=== PATIENT | female | born 1995 | race Caucasian/White ===

== ENCOUNTER 2017-03-18 12:52 | Emergency (ER) | payer OTHER ==
[2017-03-18 12:56] VITALS: BP 122/69; PULSE 85; TEMP 98; BMI 42.9
[2017-03-18] MEDS ORDERED: ACETAMINOPHEN 500 MG TABLET (FP) PO ONE (13:34)
[2017-03-18] MEDS ORDERED: ACETAMINOPHEN 325 MG TABLET (FP) ONE (14:05)
--- NOTE | 2017-03-18 14:34 | PDOC ---
History of Present Illness - General Chief Complaint: Pain, Acute Stated Complaint: ABD PAIN (4 MONTHS ) Time Seen by Provider: 03/18/17 13:30 History Source: Patient Exam Limitations: No Limitations - History of Present Illness Travel History: No Initial Comments: 03/18/17 14:29 21-year-old female currently 15 weeks presents with suprapubic Pressure and mild dysuria since yesterday. Patient states is followed by Dr. Megan Sotelo and had normal ultrasound done 3 weeks ago. Patient denies vaginal discharge, vaginal bleeding, fever, chills, nausea, or back pain. Timing/Duration: reports: constant Quality: reports: mild, cramping Abdominal Pain Onset Location: reports: suprapubic Pain Radiation: reports: no radiation Activities at Onset: reports: none Aggravating Factors: improves with: None Alleviating Factors: improves with: None Past History - Past Medical History Allergies/Adverse Reactions: Allergies Allergy/AdvReac Type Severity Reaction Status Date / Time No Known Allergies Allergy Verified 03/18/17 14:51 Home Medications: Ambulatory Orders Vitamins (Sjr) - 1 tab PO DAILY 07/12/14 Asthma: Yes (seasonal) Cancer: Yes (non hodgkins lymphoma) Cardiac Disorders: No Diabetes: No GI Disorders: Yes (gallstones) HTN: No Suicide Attempt (Hx): No Seizures: No Thyroid Disease: No - Immunization History Immunization Up to Date: Yes - Psycho/Social/Smoking Cessation Hx Anxiety: (refused) Suicidal Ideation: No Smoking Status: No Smoking History: Never smoked Have you smoked in the past 12 months: No Number of Cigarettes Smoked Daily: 0 Cigars Per Day: 0 Hx Alcohol Use: No Drug/Substance Use Hx: No Substance Use Type: None Hx Substance Use Treatment: No Patient Lives Alone: No Lives with/in: spouse/SO Review of Systems - Review of Systems Able to Perform ROS?: Yes Constitutional: No: Symptoms Reported HEENTM: No: Symptoms Reported Respiratory: No: Symptoms reported Cardiac (ROS): No: Symptoms Reported ABD/GI: Yes: Abdominal cramping : Yes: Dysuria. No: Discharge Musculoskeletal: No: Symptoms Reported Integumentary: No: Symptoms Reported Neurological: No: Headache, Dizziness Hematologic/Lymphatic: No: Symptoms Reported *Physical Exam - Vital Signs Last Vital Signs Temp Pulse Resp BP Pulse Ox 98.0 F 85 18 122/69 98 05/11/17 12:53 03/18/17 12:53 03/18/17 12:53 03/18/17 12:53 03/18/17 12:53 - Physical Exam General Appearance: Yes: Nourished, Appropriately Dressed. No: Apparent Distress HEENT: positive: EOMI, AYAN. negative: Pale Conjunctivae Neck: positive: Supple Respiratory/Chest: positive: Lungs Clear, Normal Breath Sounds. negative: Respiratory Distress, Accessory Muscle Use Cardiovascular: positive: Regular Rhythm, Regular Rate. negative: Murmur Female Pelvic Exam: positive: normal external exam, normal adnexa. negative: cervical os closed, CMT, discharge, vaginal bleeding Gastrointestinal/Abdominal: positive: Soft, Tenderness (midsuprapubic) Musculoskeletal: negative: CVA Tenderness Extremity: positive: Normal Capillary Refill Integumentary: positive: Normal Color, Warm, Moist Neurologic: positive: Motor Strength 5/5 (ambulatory) ED Treatment Course - LABORATORY CBC & Chemistry Diagram: 03/18/17 14:28 03/18/17 14:28 - RADIOLOGY Radiology Studies Ordered: Category Date Time Status FOLLOW-UP US [US] Stat Ultrasound 03/18/17 13:34 Taken - Medications Given in the ED: ED Medications Discontinued Medications Generic Name Dose Route Start Last Admin Trade Name Freq PRN Reason Stop Dose Admin Acetaminophen 975 mg 03/18/17 13:34 03/18/17 14:08 Tylenol - PO 03/18/17 13:35 975 mg ONCE ONE Administration Medical Decision Making - Medical Decision Making 03/18/17 14:35 15 week female presents with suprapubic pressure accompanied with dysuria. Patient has no acute findings on exam except for point tenderness in mid suprapubic area. Patient ordered for labs, urine urine culture, and ultrasound. Patient also ordered for Tylenol for discomfort. 03/18/17 16:07 Ultrasound shows a single live intrauterine measuring 15 weeks 1 day with a heart rate of 1 60 bpm. Patient will be treated for urinary tract infection. *DC/Admit/Observation/Transfer Diagnosis at time of Disposition: Urinary tract infection Qualifiers: Urinary tract infection type: acute cystitis Hematuria presence: with hematuria Qualified Code(s): N30.01 - Acute cystitis with hematuria - Discharge Dispostion Disposition: HOME Condition at time of disposition: Good - Referrals Referrals: Landry Valdez MD [Staff Physician] - - Patient Instructions Printed Discharge Instructions: DI for Urinary Tract Infection (UTI) Additional Instructions: Please take antibiotics as prescribed until completed. Please follow-up with your JUDO TEACHER. Please return to ED if symptoms worsen.
[2017-03-18 14:45] LABS: URINE APPEARANCE CLOUDY; URINE BILIRUBIN NEGATIVE (NEGATIVE); URINE COLOR DKYELLOW; URINE GLUCOSE (UA) NEGATIVE (NEGATIVE); URINE KETONE NEGATIVE (NEGATIVE); URINE NITRITE NEGATIVE (NEGATIVE); URINE UROBILINOGEN NEGATIVE E.U./dl (0.2-1.0)
[2017-03-18 14:52] LABS: BASOPHIL 0.4 % (0-2.0); EOSINOPHIL 1.1 % (0-4.5); MCH 29.6 pg (25.7-33.7); MCHC 33.6 g/dl (32.0-36.0); MEAN CELL VOLUME 88.2 fl (80-96); MEAN PLT VOLUME 7.4 fl (7.5-11.1); NEUTROPHILS 68.2 % (42.8-82.8); PLATELET COUNT 259 K/MM3 (134-434); RDW 12.9 % (11.6-15.6)
[2017-03-18 14:56] LABS: URINE BLOOD 3+ (NEGATIVE); URINE LEUK ESTERASE 3+ (NEGATIVE); URINE PROTEIN 1+ (NEGATIVE)
[2017-03-18 15:00] LABS: ALBUMIN 2.9 g/dl (3.4-5.0); ANION GAP 12 (8-16); BILIRUBIN,TOTAL 0.3 mg/dL (0.2-1.0); CALCIUM 8.8 mg/dL (8.5-10.1); CO2 24 mmol/L (21-32); GLUCOSE,RANDOM 81 mg/dL (74-106); SGOT/AST 15 U/L (15-37); SGPT/ALT 32 U/L (12-78); TOT PROT 6.6 g/dl (6.4-8.2)
[2017-03-18 15:01] LABS: ALK PHOS 88 U/L (45-117)
[2017-03-18 15:50] LABS: URINE MUCUS MODERATE; URINE RBC 218 /hpf (0-3); URINE WBC 52 /hpf (3-5)
[2017-03-19 12:51] LABS: COCKROFT - GAULT 321.2915; CREATININE 0.5 mg/dL (0.55-1.02)
== END 2017-03-18 16:16 | disposition home or self-care (01) ==
LOC: JER 12:52
DX: O26.892 Other specified pregnancy related conditions, second trimester (principal); N30.01 Acute cystitis with hematuria; Z3A.15 15 weeks gestation of pregnancy; Z87.09 Personal history of other diseases of the respiratory system; Z85.72 Personal history of non-Hodgkin lymphomas
CPT/HCPCS: 36415; 76816-TC; 80053; 81003; 81015; 85025; 87077; 87086; 99282-25

== ENCOUNTER 2017-08-13 10:37 | Emergency (ER) | payer OTHER ==
[2017-08-13 10:42] VITALS: BMI 42.5
--- NOTE | 2017-08-13 11:23 | PDOC ---
History of Present Illness - General Chief Complaint: Cold Symptoms Stated Complaint: SOB (36 WKS ) Time Seen by Provider: 08/13/17 11:06 History Source: Patient Exam Limitations: No Limitations - History of Present Illness Initial Comments: 08/13/17 11:18 Patient is a 22-year-old female, currently 36 weeks presents with one week history of cough, nasal congestion, no fever. She was seen yesterday by Dr. Valdez her BELL CAPTAIN baby was evaluated and is doing well, was told by to take Robitussin. Reports history of asthma has been using her albuterol inhaler states she works night and last night was coughing increased amounts. Patient denies any other complaints, no fever, no nausea vomiting, no diarrhea, no chest pain or shortness of breath this reports increased cough nonproductive. Past Medical History: asthma. Allergies: No known allergies Medications: albuterol Family History: Non-contributory Social History: Denies smoking, alcohol use, or IVDU Review of Systems GENERAL/CONSTITUTIONAL: No fever or chills. No weakness. No weight change. HEAD, EYES, EARS, NOSE AND THROAT: No change in vision. No ear pain or discharge. No sore throat. CARDIOVASCULAR: No chest pain or shortness of breath. RESPIRATORY: No cough, wheezing, or hemoptysis. GASTROINTESTINAL: No nausea, vomiting, diarrhea or constipation. No rectal bleeding. GENITOURINARY: No dysuria, frequency, or change in urination. MUSCULOSKELETAL: No joint or muscle swelling or pain. No neck or back pain. SKIN AND BREASTS: No rash or easy bruising. NEUROLOGIC: No headache, vertigo, loss of consciousness, or loss of sensation. PSYCHIATRIC: No depression or anxiety. ENDOCRINE: No increased thirst. No abnormal weight change. HEMATOLOGIC/LYMPHATIC: No anemia, easy bleeding, or history of blood clots. ALLERGIC/IMMUNOLOGIC: No hives or skin allergy. No latex allergy. Physical Exam: GENERAL: The patient is awake, alert, and fully oriented, in no acute distress. HEAD: Normal with no signs of trauma. EYES: Pupils equal, round and reactive to light, extraocular movements intact, sclera anicteric, conjunctiva clear. ENT: Ears normal, nares patent, oropharynx clear without exudates. Moist mucous membranes. No uvula deviation NECK: Normal range of motion, supple without lymphadenopathy, JVD, or masses. LUNGS: Breath sounds equal, clear to auscultation bilaterally. No wheezes, and no crackles. Occasional bronchospasm. HEART: Regular rate and rhythm, normal S1 and S2 without murmur, rub or gallop. ABDOMEN: Gravid MUSCULOSKELETAL: Normal range of motion, no edema. No clubbing or cyanosis. No cords, erythema, or tenderness. No CVA Tenderness with fist. NEUROLOGICAL: Cranial nerves II through XII grossly intact. Normal speech, normal gait. SKIN: Warm, Dry, normal turgor, no rashes or lesions noted. Past History - Past Medical History Allergies/Adverse Reactions: Allergies Allergy/AdvReac Type Severity Reaction Status Date / Time No Known Allergies Allergy Verified 08/13/17 10:39 Home Medications: Ambulatory Orders NK [No Known Home Medication] 08/13/17 Asthma: Yes (seasonal) Cancer: Yes (non hodgkins lymphoma: 2014) Cardiac Disorders: No Diabetes: No GI Disorders: Yes (gallstones) HTN: No Seizures: No Thyroid Disease: No - Immunization History Immunization Up to Date: Yes - Suicide/Smoking/Psychosocial Hx Smoking Status: No Smoking History: Never smoked Have you smoked in the past 12 months: No Number of Cigarettes Smoked Daily: 0 Cigars Per Day: 0 Hx Alcohol Use: No Drug/Substance Use Hx: No Substance Use Type: None Hx Substance Use Treatment: No *Physical Exam - Vital Signs Last Vital Signs Temp Pulse Resp BP Pulse Ox 98.3 F 97 H 18 138/74 96 08/13/17 10:39 08/13/17 10:39 08/13/17 10:39 08/13/17 10:39 08/13/17 10:39 Medical Decision Making - Medical Decision Making 08/13/17 11:22 A/P: Patient here for cough and cold-like symptoms, increased cough with occasional bronchospasm. Since patient saw Dr. Valdez last evening, I have paged him to discuss case. 08/13/17 11:50 08/13/17 12:[address] Kee, states to give patient only one Combivent treatment, patient in no acute distress does not want patient to have antibiotics or prednisone for, cold-like symptoms. Patient can continue Robitussin as needed for cough, follow-up with Dr. Valdez office. Presents, increased cough, productive cough, increased bronchospasm, or any other concerns, return immediately to ER 08/13/17 12:48 Patient with common cold-like symptoms, will DC patient home, supportive care, follow up in OB, L&D today for evaluation of baby prior to discharge. Patient to follow-up with Dr. Valdez if any fever, increased cough, or any other concerns . Medication as per Dr. Valdez, patient is in no acute distress bronchospasm is resolved, occasional nonproductive cough. 08/13/17 12:50 *DC/Admit/Observation/Transfer Diagnosis at time of Disposition: Cough - Discharge Dispostion Condition at time of disposition: Stable Admit: No - Referrals Referrals: Zaki Farfan MD [Primary Care Provider] - Landry Valdez MD [Staff Physician] - - Patient Instructions Printed Discharge Instructions: DI for Common Cold Additional Instructions: Keep head of bed elevated 45 when sleeping Albuterol as needed for wheezing or severe spasm Cool air humidifier Medications as per Dr. Valdez Followup in the primary care doctor's office in 2 days for evaluation. If any respiratory distress, increased cough, inability to drink, increased wheezing please return immediately to emergency department.
[2017-08-13] MEDS ORDERED: ALBUTEROL SO4 2.5/IPRATROPIUM 0.5 INH SOL 3 ML VIAL.NEB. NEB ONE (12:14)
[2017-08-13 13:14] VITALS: BP 115/50; PULSE 100; TEMP 97.6
== END 2017-08-13 13:43 | disposition home or self-care (01) ==
LOC: SUPCPDRO 10:37 → JERFT 10:37 → JER 10:37
PROC: 3E0F7GC Introduction of Other Therapeutic Substance into Respiratory Tract, Via Natural or Artificial Opening (ICD-10-PCS; principal; 2017-08-13)
DX: O26.893 Other specified pregnancy related conditions, third trimester (principal); Z3A.36 36 weeks gestation of pregnancy; R05 Cough
CPT/HCPCS: 99281-25

== ENCOUNTER 2017-09-02 20:00 | Inpatient (IN) | payer OTHER ==
[2017-09-02] MEDS ORDERED: AZITHROMYCIN IVPB 500 MG in DEXTROSE 5%-WATER - 250 ML IVPB ONE (23:19)
[2017-09-02] MEDS ORDERED: PROMETHAZINE HCL 25 MG/1 ML VIAL IVPUSH ONE (23:21)
[2017-09-02] MEDS ORDERED: BUTORPHANOL TARTRATE 1 MG/ML VIAL IVPUSH ONE (23:21)
[2017-09-02 23:24] VITALS: BMI 42.9
--- NOTE | 2017-09-02 23:27 | HP ---
Past Medical History - Primary Care Physician PCP:: Landry Valdez - Admission Chief Complaint: 39 weeks, labor History of Present Illness: 22 yo f edc 08/08/2017 39.3 weeks, c/o contraction, , no rom, has bloody showand mucus discharge, cx 3 cm 80 vx -2 mi, fhr cat 1, irregular contraction , History Source: Patient Limitations to Obtaining History: No Limitations - Past Medical History Pulmonary: Yes: Asthma Hepatobiliary: Yes: Choledocholithiasis ...: 4 ...Para: 1 ...Term: 1 ...: 0 ...Spon : 1 ...Induced : 1 ...LMP: 12/08/16 ... Weeks Gestation by Dates: 38.1 ...EDC by Dates: 09/14/17 ...EDC by Sono: 09/09/17 Heme/Onc: Yes: Other (non - hodgkin lymphoma) Infectious Disease: Yes: STD's (hx of chlamydia ,txed with 1 gm zithromax) - Past Surgical History Past Surgical History: Yes: Cholecystectomy Hx Myomectomy: No Hx Transabdominal Cerclage: No - Smoking History Smoking history: Never smoked Have you smoked in the past 12 months: No Aproximately how many cigarettes per day: 0 - Alcohol/Substance Use Hx Alcohol Use: No History of Substance Use: reports: None - Social History Usual Living Arrangement: Yes: With Spouse History of Recent Travel: No Home Medications - Allergies Allergies/Adverse Reactions: Allergies Allergy/AdvReac Type Severity Reaction Status Date / Time No Known Allergies Allergy Verified 09/02/17 21:44 - Home Medications Home Medications: Ambulatory Orders Albuterol Sulfate Inhaler - [Ventolin HFA Inhaler -] 1 - 2 puff PO PRN PRN 08/25 Vit/Iron Fumarate/FA [ Tablet] 1 tablet PO DAILY 08/25/17 Review of Systems - Review of Systems Constitutional: reports: No Symptoms Eyes: reports: No Symptoms HENT: reports: No Symptoms Neck: reports: No Symptoms Cardiovascular: reports: No Symptoms Gastrointestinal: reports: No Symptoms Genitourinary: reports: No Symptoms Musculoskeletal: reports: No Symptoms Integumentary: reports: No Symptoms Neurological: reports: No Symptoms Endocrine: reports: No Symptoms Hematology/Lymphatic: reports: No Symptoms Psychiatric: reports: No Symptoms Physical Exam - Maternity Vital Signs: Vital Signs Temperature 98.2 F 09/02/17 21:49 Pulse Rate 107 H 09/02/17 21:49 Respiratory Rate 16 09/02/17 21:49 Blood Pressure 118/67 09/02/17 21:49 O2 Sat by Pulse Oximetry (%) Constitutional: Yes: Well Nourished, No Distress, Calm Eyes: Yes: WNL, Conjunctiva Clear, EOM Intact HENT: Yes: WNL, Atraumatic, Normocephalic Neck: Yes: WNL, Supple, Trachea Midline Cardiovascular: Yes: WNL, Regular Rate and Rhythm Breast(s): Yes: WNL - Abdominal Exam/OB Fundal Height: 40 Number of Fetuses: Single Presentation: Vertex Contractions: Yes Regularity: Irregular Intensity: Mod/Strong Monitor Mode: External Heart Rate [facility] Category: I Accelerations: Uniform - Vaginal Exam/OB Vaginal Bleediing: No, Bloody Show Dilatation (cm): 3 cm Effacement (%): 75 Amniotic Membrane Status: Bulging Presentation: Vertex/Position Station: -2 - Physical Exam Musculoskeletal: Yes: WNL Extremities: Yes: WNL Edema: LUE: Trace, RUE: Trace, LLE: 1+, RLE: 1+ Deep Tendon Reflex Grade: Normal +2 Hemorrhage Risk Assessment - Risk Factors Medium Risk Factors: Yes: None High Risk Factors: Yes: None Risk Score: 1 Risk Level: Medium Risk Problem List - Problems (1) with 39 completed weeks gestation Code(s): Z3A.39 - 39 WEEKS GESTATION OF (2) Labor established Code(s): [id number] - (3) Obesity Code(s): E66.9 - OBESITY, UNSPECIFIED Qualifiers: Obesity type: due to excess calories Assessment/Plan admit , heart monitoring, ,pitocin rba discussed . agreed
[2017-09-02] MEDS ORDERED: OXYTOCIN 15 UNITS/ LR 250 ML 250 ML IVPB SCH (23:30)
[2017-09-02] MEDS ORDERED: DEXTROSE 5%-LACTATED RINGERS 1,000 ML IV SCH (23:30)
[2017-09-03] LABS: BASOPHIL 1.7 % (0-2.0); EOSINOPHIL 0.5 % (0-4.5); MCHC 34.2 g/dl (32.0-36.0); MEAN CELL VOLUME 87.7 fl (80-96); MEAN PLT VOLUME 8.2 fl (7.5-11.1); NEUTROPHILS 73.2 % (42.8-82.8); PLATELET COUNT 227 K/MM3 (134-434); RDW 13.7 % (11.6-15.6); WHITE BLOOD COUNT 8.5 K/mm3 (4.0-10.0)
[2017-09-03 00:09] LABS: INR 0.92 (0.82-1.09); PROTHROMBIN TIME (PATIENT) 10.4 SEC (9.98-11.88)
[2017-09-03 00:12] LABS: ACTIVATED PTT 26.1 SECONDS (26.9-34.4)
[2017-09-03] MEDS ORDERED: ELECTROLYTE-148 SOLN 1,000 ML IV ONE (00:13)
[2017-09-03 00:16] LABS: ANION GAP 11 (8-16); CALCIUM 7.9 mg/dL (8.5-10.1); CO2 22 mmol/L (21-32); CREATININE 0.3 mg/dL (0.55-1.02); GLUCOSE,RANDOM 83 mg/dL (74-106)
[2017-09-03] MEDS: AZITHROMYCIN IVPB 250 ML IVPB SCH ×2 (00:20→01:20)
[2017-09-03] MEDS ORDERED: ELECTROLYTE-148 SOLN 1,000 ML IV SCH (00:46)
[2017-09-03] MEDS ORDERED: FENTANYL/BUPIVACAINE/NS/PF - PCEA - 50 ML DISP.SYRIN EP SCH (08:00)
--- NOTE | 2017-09-03 08:16 | PN ---
Progress Note (short form) - Note Progress Note: 745 am cx 4 cm, 80 vx -2 , mi, arom, clear , fh cat 1 tracing, contraction q 2min, wants epidural Problem List - Problems (1) with 39 completed weeks gestation Code(s): Z3A.39 - 39 WEEKS GESTATION OF (2) Labor established Code(s): XFY5000 - (3) Obesity Code(s): E66.9 - OBESITY, UNSPECIFIED Qualifiers: Obesity type: due to excess calories
[2017-09-03] MEDS ORDERED: WITCH HAZEL 50% (TUCKS) 40 PAD/JAR PAD TP PRN (10:33)
[2017-09-03] MEDS ORDERED: METHYLERGONOVINE MALEATE 0.2 MG/1 ML AMP IM PRN (10:33)
[2017-09-03] MEDS ORDERED: BENZOCAINE 20% 57 GM BOTTLE TP PRN (10:33)
[2017-09-03] MEDS ORDERED: BENZOCAINE 28 GM HEMORRHOIDAL OINTMENT TP PRN (10:33)
[2017-09-03] MEDS ORDERED: BISACODYL 10 MG SUPP.RECT RC PRN (10:33)
[2017-09-03] MEDS ORDERED: D5W-LR W/ 20 UNITS OXYTOCIN 1,000 ML IV SCH (10:45)
[2017-09-03] MEDS ORDERED: OXYTOCIN 20 UNITS in 0.9% NS 1,000 ML IV SCH (12:15)
[2017-09-03] MEDS: IBUPROFEN 600 MG TABLET (FP) PO PRN ×2 (15:55→21:06)
[2017-09-03] MEDS: ACETAMINOPHEN 325 MG TABLET (FP) PO PRN ×2 (15:55→21:05)
[2017-09-03] MEDS: FERROUS SO4 325 MG TABLET (FP) PO SCH (21:05)
[2017-09-04] MEDS: ACETAMINOPHEN 325 MG TABLET (FP) PO PRN ×3 (00:59→21:54)
[2017-09-04] MEDS: IBUPROFEN 600 MG TABLET (FP) PO PRN ×3 (01:00→21:53)
--- NOTE | 2017-09-04 06:29 | PN ---
Post Progress Note Post Day: 1 Type of Delivery: Vital Signs: Vital Signs Temperature 98.3 F 09/04/17 06:00 Pulse Rate 88 09/04/17 06:00 Respiratory Rate 20 09/04/17 06:00 Blood Pressure 116/76 09/04/17 06:00 O2 Sat by Pulse Oximetry (%) 100 09/03/17 10:10 Breast Exam: Yes: Soft Uterus: Yes: Fundus Firm Abdomen/GI: Yes: Abdomen soft Lochia: Yes: Rubra Lochia, amount: Small Extremities: Yes: Calves non-tender Perineum: Yes: Intact Activity: Ambulating - Labs Labs: CBC WBC 8.5 K/mm3 (4.0-10.0) 09/02/17 23:30 RBC 3.86 M/mm3 (3.60-5.2) 09/02/17 23:30 Hgb 11.6 GM/dL (10.7-15.3) D 09/02/17 23:30 Hct 33.9 % (32.4-45.2) 09/02/17 23:30 MCV 87.7 fl (80-96) 09/02/17 23:30 MCH 30.0 pg (25.7-33.7) 09/02/17 23:30 MCHC 34.2 g/dl (32.0-36.0) 09/02/17 23:30 RDW 13.7 % (11.6-15.6) 09/02/17 23:30 Plt Count 227 K/MM3 (134-434) 09/02/17 23:30 MPV 8.2 fl (7.5-11.1) D 09/02/17 23:30 Neutrophils % 73.2 % (42.8-82.8) 09/02/17 23:30 Lymphocytes % 19.7 % (8-40) D 09/02/17 23:30 Monocytes % 4.9 % (3.8-10.2) 09/02/17 23:30 Eosinophils % 0.5 % (0-4.5) 09/02/17 23:30 Basophils % 1.7 % (0-2.0) D 09/02/17 23:30 Assessment/Plan oob reg diet
[2017-09-04 07:47] LABS: BASOPHIL 0.6 % (0-2.0); EOSINOPHIL 1.5 % (0-4.5); MCH 30.7 pg (25.7-33.7); MCHC 34.7 g/dl (32.0-36.0); MEAN CELL VOLUME 88.6 fl (80-96); PLATELET COUNT 208 K/MM3 (134-434); RDW 13.4 % (11.6-15.6); WHITE BLOOD COUNT 8.5 K/mm3 (4.0-10.0)
[2017-09-04] MEDS: FERROUS SO4 325 MG TABLET (FP) PO SCH ×2 (09:37→21:52)
[2017-09-04] MEDS: PRENATAL VITAMINS W/ FOLIC ACID TABLET (FP) PO SCH (09:37)
[2017-09-04 21:40] VITALS: PULSE 82
[2017-09-04] MEDS ORDERED: SENNOSIDES/DOCUSATE COMBO (SENNA PLUS) TABLET (UD) PO PRN (22:00)
[2017-09-05 09:10] VITALS: BP 139/87; TEMP 99.1
[2017-09-05] MEDS: FERROUS SO4 325 MG TABLET (FP) PO SCH (09:37)
[2017-09-05] MEDS: PRENATAL VITAMINS W/ FOLIC ACID TABLET (FP) PO SCH (09:37)
[2017-09-05] MEDS: IBUPROFEN 600 MG TABLET (FP) PO PRN (12:08)
--- NOTE | 2017-09-05 12:08 | PN ---
Post Progress Note Type of Delivery: Vital Signs: Vital Signs Temperature 99.1 F 09/05/17 09:05 Pulse Rate 82 09/05/17 09:05 Respiratory Rate 20 09/05/17 09:05 Blood Pressure 139/87 09/05/17 09:05 O2 Sat by Pulse Oximetry (%) 100 09/03/17 10:10 Breast Exam: Yes: Soft Uterus: Yes: Fundus Firm Abdomen/GI: Yes: Abdomen soft Lochia: Yes: Rubra Lochia, amount: Small Extremities: Yes: Calves non-tender Activity: Ambulating - Labs Labs: CBC WBC 8.5 K/mm3 (4.0-10.0) 09/04/17 07:13 RBC 3.62 M/mm3 (3.60-5.2) 09/04/17 07:13 Hgb 11.1 GM/dL (10.7-15.3) 09/04/17 07:13 Hct 32.1 % (32.4-45.2) L 09/04/17 07:13 MCV 88.6 fl (80-96) 09/04/17 07:13 MCH 30.7 pg (25.7-33.7) 09/04/17 07:13 MCHC 34.7 g/dl (32.0-36.0) 09/04/17 07:13 RDW 13.4 % (11.6-15.6) 09/04/17 07:13 Plt Count 208 K/MM3 (134-434) 09/04/17 07:13 MPV 8.0 fl (7.5-11.1) 09/04/17 07:13 Neutrophils % 66.0 % (42.8-82.8) 09/04/17 07:13 Lymphocytes % 26.1 % (8-40) D 09/04/17 07:13 Monocytes % 5.8 % (3.8-10.2) 09/04/17 07:13 Eosinophils % 1.5 % (0-4.5) D 09/04/17 07:13 Basophils % 0.6 % (0-2.0) 09/04/17 07:13 Problem List - Problems (1) care and examination of lactating mother Code(s): Z39.1 - ENCOUNTER FOR CARE AND EXAMINATION OF LACTATING MOTHER Assessment/Plan Pt PPD #2 s/p doing well breast feeding desires mirena for contraception f/u clinic 4-6 weeks for pp visit
[2017-09-05] MEDS: ACETAMINOPHEN 325 MG TABLET (FP) PO PRN (12:09)
--- NOTE | 2017-09-05 12:09 | DS ---
Physical Exam-ACCOUNT CONSULTANT Vital Signs: Vital Signs Temperature 99.1 F 09/05/17 09:05 Pulse Rate 82 09/05/17 09:05 Respiratory Rate 20 09/05/17 09:05 Blood Pressure 139/87 09/05/17 09:05 O2 Sat by Pulse Oximetry (%) 100 09/03/17 10:10 Constitutional: Yes: Well Nourished, No Distress, Calm Eyes: Yes: WNL, Conjunctiva Clear, EOM Intact HENT: Yes: WNL, Atraumatic, Normocephalic Neck: Yes: WNL, Supple, Trachea Midline Cardiovascular: Yes: WNL, Regular Rate and Rhythm Respiratory: Yes: WNL, Regular, CTA Bilaterally Gastrointestinal: Yes: WNL ...Rectal Exam: Yes: WNL Renal/: Yes: WNL Breast(s): Yes: WNL Musculoskeletal: Yes: WNL Extremities: Yes: WNL Integumentary: Yes: WNL Neurological: Yes: WNL, Alert, Oriented ...Motor Strength: WNL Psychiatric: Yes: WNL, Alert, Oriented Labs: CBC, BMP 09/04/17 07:13 09/02/17 23:30 Delivery - Delivery Vaginal Delivery: No Problems Type of Anesthesia: Local, Epidural Episiotomy/Laceration: Vaginal Extension/lac EBL (cc): 350 Delivery, Single - Stages of Labor Date 1st Stage Initiatied: 09/03/17 Time 1st Stage Initiated: 02:00 Date 2nd Stage Initiated: 09/03/17 Time 2nd Stage Initiated: 10:05 Date of Delivery: 09/03/17 Time of Delivery: 10:25 Time Placenta Delivered: 10:30 - Condition of Industrial Aerial Installer/Pantograph Transferrer Present: No Infant Gender: Female Weight: 9 lb Position: Left, OA Total Hours ROM (Hrs/Mins): 2hrs 45min - 1 Minute Total Score: 9 5 Minutes Total Score: 9 - [place] Feeding Plan Initial Plan: Elected not to breastfeed exclusively throughout hospitalization Discharge Summary Reason For Visit: LABOR ADMIT Current Active Problems Labor established (Acute) Obesity (Acute) care and examination of lactating mother (Acute) with 39 completed weeks gestation (Acute) Condition: Good - Instructions Referrals: Landry Valdez MD [Staff Physician] - Disposition: HOME - Home Medications Comprehensive Discharge Medication List: Ambulatory Orders Albuterol Sulfate Inhaler - [Ventolin HFA Inhaler -] 1 - 2 puff PO PRN PRN 08/25 Vit/Iron Fumarate/FA [ Tablet] 1 tablet PO DAILY 08/25/17 Ibuprofen [Motrin -] 600 mg PO TID #21 tablet 09/04/17
== END 2017-09-05 13:05 | disposition home or self-care (01) | DRG 775 ==
LOC: JDEL 20:00 → JLDR 22:40 → J3W 09-03 13:00
PROVIDERS: ADMIT Obstetrics & Gynecology; ATTEND Obstetrics & Gynecology
PROC: 0HQ9XZZ Repair Perineum Skin, External Approach (ICD-10-PCS; principal; 2017-09-03)
PROC: 10E0XZZ Delivery of Products of Conception, External Approach (ICD-10-PCS; 2017-09-03)
DX: O99.214 Obesity complicating childbirth (principal); Z68.41 Body mass index [BMI] 40.0-44.9, adult; O70.0 First degree perineal laceration during delivery; Z37.0 Single live birth; E66.9 Obesity, unspecified; Z3A.39 39 weeks gestation of pregnancy
CPT/HCPCS: 36415; 59409; 80048; 85025; 85610; 85730; 86593; 86850; 86900; 86901

== ENCOUNTER 2019-05-16 04:42 | Emergency (ER) | payer SELFPAY ==
[2019-05-16 04:53] VITALS: BP 121/79; PULSE 96; TEMP 98.4; BMI 36.3
--- NOTE | 2019-05-16 05:02 | PDOC ---
History of Present Illness - General Chief Complaint: Injury Stated Complaint: LACERATION RIGHT MIDDLE FINGER Time Seen by Provider: 05/16/19 04:57 History Source: Patient Exam Limitations: No Limitations - History of Present Illness Initial Comments: 05/16/19 04:57 This is a 24-year-old female who comes in complaining of a laceration on the follow-up her left hand. Bleeding. Patient otherwise is healthy her immunizations are up-to-date. Patient cut her hand yesterday afternoon. Approximately 12 hours ago. Allergies: as per nursing notes Past Medical History: none Social history: Lives with family. No smoking. No alcohol. No illicit drugs. Surgical history: None General: No fevers or chills, no weakness, no weight loss HEENT: No change in vision. No sore throat,. No ear pain CardioVascular: no chest discomfort. No shortness of breath Respiratory:No cough, or wheezing. Gastrointestinal: no nausea, vomiting, diarrhea or constipation, No rectal bleeding Genitourinary: No dysuria, hematuria, or frequency Musculoskeletal: No joint or muscle pain or swelling Neurologic: No headache, vertigo, dizziness or loss of consciousness Psychiatric: nor depression Skin: No rashes or easy bruising Endocrine: no increased thirst or abnormal weight change Allergic: no skin or latex allergy All other systems reviewed and normal GENERAL: The patient is awake, alert, and fully oriented, in no acute distress. HEAD: Normal with no signs of trauma. EYES: Pupils equal, round and reactive to light, extraocular movements intact, sclera anicteric, conjunctiva clear. EXTREMITIES: And there is a superficial laceration on the palm approximately one half centimeter in length. There is no active bleeding at this time. NEUROLOGICAL: Normal speech, normal gait. PSYCH: Normal mood, normal affect. SKIN: Warm, Dry, normal turgor, no rashes or lesions noted. Procedure note laceration repair with Dermabond laceration was cleaned and then closed with number Dermabond patient tolerated well. Patient discharged with Dermabond instructions Past History - Past Medical History Allergies/Adverse Reactions: Allergies Allergy/AdvReac Type Severity Reaction Status Date / Time No Known Allergies Allergy Verified 05/16/19 04:49 Home Medications: Ambulatory Orders NK [No Known Home Medication] 05/16/19 Asthma: Yes Cancer: No Cardiac Disorders: No COPD: No Diabetes: No GI Disorders: Yes (gallstones) HTN: No Seizures: No Thyroid Disease: No - Surgical History Cholecystectomy: Yes - Immunization History Immunization Up to Date: Yes - Suicide/Smoking/Psychosocial Hx Smoking Status: No Smoking History: Never smoked Have you smoked in the past 12 months: No Number of Cigarettes Smoked Daily: 0 Cigars Per Day: 0 Information on smoking cessation initiated: No Hx Alcohol Use: Yes (SOCIALLY) Drug/Substance Use Hx: No Substance Use Type: None Hx Substance Use Treatment: No *Physical Exam - Vital Signs Last Vital Signs Temp Pulse Resp BP Pulse Ox 98.4 F 96 H 16 121/79 98 05/16/19 04:50 05/16/19 04:50 05/16/19 04:50 05/16/19 04:50 05/16/19 04:50 *DC/Admit/Observation/Transfer Diagnosis at time of Disposition: Laceration of hand Qualifiers: Encounter type: initial encounter Foreign body presence: without foreign body Laterality: right Qualified Code(s): S61.411A - Laceration without foreign body of right hand, initial encounter - Discharge Dispostion Disposition: HOME Condition at time of disposition: Stable Decision to Admit order: No - Referrals - Patient Instructions Printed Discharge Instructions: DI for Laceration Repair With Dermabond Additional Instructions: Read over and follow the Dermabond instructions. Keep it dry for 72 hours Do notUse any petroleum based products on it as it will cause the glue to melt off. Return to the emergency department immediately with ANY new, persistent or worsening symptoms. Continue any medications as previously prescribed by your physician. You should follow up with your primary doctor as soon as possible regarding today's emergency department visit. . Please make sure your doctor reviews the results of your emergency evaluation. Thank you for coming to the Emergency Department today for your care. It was a pleasure to see you today. Please note that your evaluation is INCOMPLETE until you follow-up with your doctor. - Post Discharge Activity
== END 2019-05-16 05:05 | disposition home or self-care (01) ==
LOC: FER 04:42
DX: S61.212A Laceration without foreign body of right middle finger without damage to nail, initial encounter (principal); J45.909 Unspecified asthma, uncomplicated
CPT/HCPCS: 99281-25

== ENCOUNTER 2019-05-22 17:24 | Emergency (ER) | payer SELFPAY ==
[2019-05-22 17:49] VITALS: BP 103/64; PULSE 71; TEMP 98.7; BMI 37.1
--- NOTE | 2019-05-22 17:50 | PDOC ---
Rapid Medical Evaluation Chief Complaint: Pain, Acute Time Seen by Provider: 05/22/19 17:47 Medical Evaluation: Allergies Allergy/AdvReac Type Severity Reaction Status Date / Time No Known Allergies Allergy Verified 05/22/19 17:45 05/22/19 17:47 I have performed a brief in-person evaluation of this patient. The patient presents with a chief complaint of:1 week h/o epigastric pain with diarrhea which worsens with food. Denies blood or mucus on stool. LMP 7/6. report nausea but denies vomiting Pertinent physical exam findings: A&O x 3 in NAD I have ordered the following: UA, UCx, hcg. cbc,cmp,lipase The patient will proceed to the ED for further evaluation Discharge Disposition - Diagnosis Abdominal pain Qualifiers: Abdominal location: epigastric Qualified Code(s): R10.13 - Epigastric pain - Discharge Dispostion Condition at time of disposition: Stable - Referrals - Patient Instructions - Post Discharge Activity
[2019-05-22 18:35] LABS: URINE APPEARANCE CLOUDY; URINE BILIRUBIN NEGATIVE (NEGATIVE); URINE COLOR YELLOW; URINE GLUCOSE (UA) NEGATIVE (NEGATIVE); URINE KETONE TRACE (NEGATIVE); URINE LEUK ESTERASE NEGATIVE (NEGATIVE); URINE NITRITE NEGATIVE (NEGATIVE); URINE PROTEIN NEGATIVE (NEGATIVE)
[2019-05-22 18:36] LABS: HCG,QUALITATIVE URINE Negative
== END 2019-05-22 20:00 | disposition left against medical advice (07) ==
LOC: JER 17:24
DX: R10.13 Epigastric pain (principal)
CPT/HCPCS: 81003; 84703; 99281-25

== ENCOUNTER 2019-12-21 15:32 | Emergency (ER) | payer OTHER ==
[2019-12-21 15:50] VITALS: TEMP 99; BMI 30.7
--- NOTE | 2019-12-21 16:12 | PDOC ---
History of Present Illness - General Chief Complaint: Pain, Acute Stated Complaint: LOWER BACK/STOMACH PAIN Time Seen by Provider: 12/21/19 16:12 Past History - Past Medical History Allergies/Adverse Reactions: Allergies Allergy/AdvReac Type Severity Reaction Status Date / Time No Known Allergies Allergy Verified 12/21/19 15:46 Home Medications: Ambulatory Orders NK [No Known Home Medication] 05/16/19 Asthma: Yes Cancer: No Cardiac Disorders: No COPD: No Diabetes: No GI Disorders: Yes HTN: No Seizures: No Thyroid Disease: No - Surgical History Cholecystectomy: Yes (2013) - Immunization History Immunization Up to Date: Yes - Psycho Social/Smoking Cessation Hx Smoking Status: No Smoking History: Never smoked Have you smoked in the past 12 months: No Number of Cigarettes Smoked Daily: 0 Cigars Per Day: 0 Hx Alcohol Use: Yes (SOCIALLY) Drug/Substance Use Hx: No Substance Use Type: None Hx Substance Use Treatment: No *Physical Exam - Vital Signs Last Vital Signs Temp Pulse Resp BP Pulse Ox 99 F 83 18 105/69 99 12/21/19 15:47 12/21/19 15:47 12/21/19 15:47 12/21/19 15:47 12/21/19 15:47
--- NOTE | 2019-12-21 16:43 | PDOC ---
History of Present Illness - General Chief Complaint: Pain, Acute Stated Complaint: LOWER BACK/STOMACH PAIN Time Seen by Provider: 12/21/19 16:12 - History of Present Illness Initial Comments: 12/21/19 16:41 24 yo F, , PMH non-Hodgkins lymphoma diagnosed and treated 6 years ago ( not on meds), cholecystectomy, asthma, IUD placed 3 years ago, recurrent bacterial vaginosis for the past year, history of abnormal Pap smears, presenting with vaginal bleeding. Non-stop, associated with cramping abdominal pain. States that she has had bleeding for the past 3 weeks. Had an OBGYN appointment 3 weeks ago for another episode of BV, was given metonidazole cream and cephalexin. Was also told again that she had an abnormal Pap smear. Follows at [address] [place] [address], has OBGYN appointment tomorrow morning. Past History - Past Medical History Allergies/Adverse Reactions: Allergies Allergy/AdvReac Type Severity Reaction Status Date / Time No Known Allergies Allergy Verified 12/21/19 15:46 Home Medications: Ambulatory Orders NK [No Known Home Medication] 05/16/19 Asthma: Yes Cancer: No Cardiac Disorders: No COPD: No Diabetes: No GI Disorders: Yes HTN: No Seizures: No Thyroid Disease: No - Surgical History Cholecystectomy: Yes (2013) - Immunization History Immunization Up to Date: Yes - Psycho Social/Smoking Cessation Hx Smoking Status: No Smoking History: Never smoked Have you smoked in the past 12 months: No Number of Cigarettes Smoked Daily: 0 Cigars Per Day: 0 Hx Alcohol Use: Yes (SOCIALLY) Drug/Substance Use Hx: No Substance Use Type: None Hx Substance Use Treatment: No Review of Systems - Review of Systems Comments:: 12/21/19 18:16 GENERAL/CONSTITUTIONAL: denies fever, chills, diaphoresis, generalized weakness , malaise, loss of appetite, weight change HEAD, EYES, EARS, NOSE AND THROAT: denies rhinorrhea, nasal congestion, throat pain, throat swelling, difficulty swallowing, mouth swelling, ear pain, eye pain , visual changes NEUROLOGIC: denies headache, focal weakness or paresthesias, dizziness, unsteady gait, seizure, mental status changes, bladder or bowel incontinence CARDIOVASCULAR: denies chest pain, syncope, palpitations, irregular heart rate, lightheadedness, peripheral edema RESPIRATORY: denies cough, shortness of breath, dyspnea with exertion, orthopnea , wheezing, stridor, hemoptysis GASTROINTESTINAL: endorses abdominal pain. Denies abdominal distension, nausea, vomiting, diarrhea, constipation, melena, hematochezia GENITOURINARY: endorses vaginal bleeding and dyspareunia. Denies dysuria, frequency, urgency, hesitancy, hematuria, flank pain MUSCULOSKELETAL: denies myalgia, arthralgia, joint swelling, back pain, neck pain SKIN: denies rash, itching, pallor HEMATOLOGIC/IMMUNOLOGIC: denies easy bleeding, easy bruising, lymphadenopathy, frequent infections ENDOCRINE: denies unexplained weight gain, unexplained weight loss, heat intolerance, cold intolerance PSYCHIATRIC: denies anxiety, depression, suicidal or homicidal ideation, hallucinations. *Physical Exam - Vital Signs Last Vital Signs Temp Pulse Resp BP Pulse Ox 99 F 83 18 105/69 99 12/21/19 15:47 12/21/19 15:47 12/21/19 15:47 12/21/19 15:47 12/21/19 15:47 - Physical Exam 12/21/19 18:18 GENERAL: Awake, alert, and fully oriented, in no acute distress. HEAD: Normal with no signs of trauma. EYES: Pupils equal, round and reactive to light, extraocular movements intact, sclera anicteric, conjunctiva clear. No lid lag. EARS, NOSE, THROAT: Ears normal, nares patent, oropharynx clear without exudates. NECK: Normal range of motion, supple without lymphadenopathy, JVD, or masses. LUNGS: Breath sounds equal, clear to auscultation bilaterally. No wheezes, and no crackles. No accessory muscle use. HEART: Regular rate and rhythm, normal S1 and S2 without murmur, rub or gallop. ABDOMEN: Soft, nontender, non-distended, normoactive bowel sounds, negative guarding, negative rebound MUSCULOSKELETAL: Normal range of motion at all joints. No bony deformities or tenderness. No CVA tenderness. UPPER EXTREMITIES: 2+ pulses, warm, well-perfused. No cyanosis. No clubbing. Cap refill <2 seconds. No peripheral edema. LOWER EXTREMITIES: 2+ pulses, warm, well-perfused. No calf tenderness. No peripheral edema. : friable cervix with ongoing oozing and bleeding, closed os, no discharge NEUROLOGICAL: Cranial nerves II-XII intact. Normal speech. Normal gait. PSYCHIATRIC: Cooperative. Good eye contact. Appropriate mood and affect. SKIN: Warm, dry, normal turgor, no rashes or lesions noted. ED Treatment Course - LABORATORY CBC & Chemistry Diagram: 12/21/19 17:50 12/21/19 17:50 Medical Decision Making - Medical Decision Making 12/21/19 18:07 Concern for cervical CA vs IUD erosion v fibroids. - CBC, CMP - coags - TVUS 12/21/19 19:12 TVUS with nonspecific heterogenous mildly enlarged uterine cervix, IUD in place , 2.4 cm R adnexal cyst which appears to be separate from the ovary. 6 week follow-up sonography is suggested to document resolution. Labs unremarkable, urine preg negative, UA with 1+blood, 1+ protein, and 1+ leuks. Will plan for dc with close outpatient follow-up. Discharge - Discharge Information Problems reviewed: Yes Clinical Impression/Diagnosis: Vaginal bleeding Condition: Stable Disposition: HOME - Admission No - Follow up/Referral Referrals: Zaki Farfan MD [Primary Care Provider] - - Patient Discharge Instructions Additional Instructions: You were seen with vaginal bleeding. Your labs were unremarkable, but your pelvic exam did show an abnormal cervix with bleeding. A transvaginal ultrasound was also performed, which again showed the irregular cervix, but also a 2.4 cm cyst on the right which requires follow-up in 6 weeks. This report is included in your paperwork. Please go to your OBGYN appointment tomorrow with your paperwork from today. Follow up with your primary care doctor within one week. Return to the ED if you develop worsening symptoms. - Post Discharge Activity
[2019-12-21 17:12] LABS: EPI CELLS 0.7 /HPF (0-5/HPF); HYALINE CASTS 6 /lpf (0-8); PH,URINE 7.5 (5.0-8.0); URINE APPEARANCE CLEAR; URINE BACTERIA 21.5 /hpf (NEGATIVE); URINE BILIRUBIN NEGATIVE (NEGATIVE); URINE COLOR YELLOW; URINE GLUCOSE (UA) NEGATIVE (NEGATIVE); URINE KETONE NEGATIVE (NEGATIVE); URINE LEUK ESTERASE 1+ (NEGATIVE); URINE NITRITE NEGATIVE (NEGATIVE); URINE PROTEIN 1+ (NEGATIVE); URINE RBC 19 /hpf (0-4); URINE UROBILINOGEN 0.2 mg/dL (0.2-1.0); URINE WBC 35 /hpf (0-5)
--- NOTE | 2019-12-21 18:05 | PDOC ---
Documentation entered by Radha Max SCRIBE, acting as scribe for Alice Busch DO. Alice Busch DO: This documentation has been prepared by the Mansoor keene Torie, SCRIBE, under my direction and personally reviewed by me in its entirety. I confirm that the documentation accurately reflects all work, treatment, procedures, and medical decision making performed by me. Attending Attestation - Resident Resident Name: Mariam Atkinson - ED Attending Attestation I have performed the following: I have examined & evaluated the patient, The case was reviewed & discussed with the resident, I agree w/resident's findings & plan, Exceptions are as noted - HPI HPI: 12/21/19 18:16 Patient is a 24 year old female with a significant medical history of , non-Hodgkin's lymphoma, cholecystectomy, asthma, IUD placed 3 years ago, and recurrent bacterial vaginosis for the past year who presents to the ED with vaginal bleeding that began December 01 and hasnt stopped since. Patient reports having some lower abdomen pain and cramping. - Physicial Exam PE: 12/21/19 18:16 Constitutional: Awake, alert, oriented. No acute distress. Head: Normocephalic. Atraumatic Eyes: PERRL. EOMI. Conjunctivae are not pale. ENT: Mucous membranes are moist and intact. Posterior pharynx without exudates or erythema. Uvula midline. Neck: Supple. Full ROM. No lymphadenopathy. Cardiovascular: Regular rate. Regular rhythm. S1, S2 regular. Distal pulses are 2+ and symmetric. Pulmonary/Chest: No evidence of respiratory distress. Clear to auscultation bilaterally No wheezing, rales or rhonchi. Abdominal: +Abdominal tenderness. No rebound, guarding or rigidity. No organomegaly. No palpable masses. Good bowel sounds. Pelvic: Os is closed. Friable cervix. Vault full of blood. Irregular cervix. Back: No CVA tenderness. Musculoskeletal: No edema. No cyanosis. No clubbing. Full range of motion in all extremities. Nocalf tenderness. Radial/pedal pulses are intact and 2+ bilaterally Skin: Skin is warm and dry. No petechiae. No purpura. Neurological: Alert and oriented to person, place, and time. Cranial nerves II -XII are grossly intact. Normal speech. Strength is grossly symmetric. No sensory deficits. Psychiatric: Good eye contact. Normal interaction, affect and behavior. - Medical Decision Making 12/21/19 18:03 a/p: 24yo female with persistent bleeding since November -hx of IUD -last seen by RESIDENTIAL PROPERTY MANAGER 2 weeks ago -pt states recently had a bladder infection treated with keflex and BV on metrogel -has appt with Megan Sotelo tomorrow morning -pt with cramping and bleeding -very friable, abnl contour of the cervix -os closed -will send for ultrasound and labs to assess for masses, fibroids, iud placement -will monitor and reassess 12/21/19 18:05 pt admits to abnl pap smear in the past - told to have a repeat in 6m, no colpo or leep recommended per the patient 12/21/19 19:19 pt with nonspecific heterogeneous cervix hgb stable has appt with RESIDENTIAL PROPERTY MANAGER tomorrow no dysuria pt is stable for dc to home and follow up with RESIDENTIAL PROPERTY MANAGER in the AM
[2019-12-21 18:37] LABS: EOS % 4.9 % (0-4.5); HEMATOCRIT 35.5 % (32.4-45.2); HEMOGLOBIN 11.9 GM/dL (10.7-15.3); LYMPH % 27.8 % (8-40); MCH 29.1 pg (25.7-33.7); MCHC 33.5 g/dl (32.0-36.0); MEAN PLT VOLUME 7.7 fl (7.5-11.1); MONO % 4.1 % (3.8-10.2); NEUT % 62.2 % (42.8-82.8); PLATELET COUNT 386 K/MM3 (134-434); RBC 4.08 M/mm3 (3.60-5.2); RDW 13.2 % (11.6-15.6); WHITE BLOOD COUNT 9.5 K/mm3 (4.0-10.0)
[2019-12-21 18:51] LABS: INR 0.94 (0.83-1.09); PROTHROMBIN TIME (PATIENT) 11.1 SEC (9.7-13.0)
[2019-12-21 18:54] LABS: ACTIVATED PTT 30.1 SECONDS (25.2-36.5)
[2019-12-21 19:12] LABS: ALBUMIN 3.4 g/dl (3.4-5.0); BILIRUBIN,TOTAL 0.3 mg/dL (0.2-1); BLOOD UREA NITROGEN 12.1 mg/dL (7-18); CALCIUM 8.4 mg/dL (8.5-10.1); CREATININE 0.6 mg/dL (0.55-1.3); POTASSIUM 4.6 mmol/L (3.5-5.1); TOT PROT 7.2 g/dl (6.4-8.2)
[2019-12-21 19:44] VITALS: BP 109/73; PULSE 76
== END 2019-12-21 19:36 | disposition home or self-care (01) ==
LOC: JER 15:32
DX: N93.8 Other specified abnormal uterine and vaginal bleeding (principal); R19.03 Right lower quadrant abdominal swelling, mass and lump; R87.618 Other abnormal cytological findings on specimens from cervix uteri; Z90.49 Acquired absence of other specified parts of digestive tract; Z87.09 Personal history of other diseases of the respiratory system; Z97.5 Presence of (intrauterine) contraceptive device
CPT/HCPCS: 36415; 76830-TC; 80053; 81003; 83735; 84100; 84703; 85025; 85610; 85730; 87086; 99284-25

== ENCOUNTER 2020-01-09 23:15 | Emergency (ER) | payer OTHER ==
[2020-01-09 23:25] VITALS: BP 136/86; PULSE 104; TEMP 99.1; BMI 39.4
[2020-01-09] MEDS ORDERED: KETOROLAC TROMETHAMINE 60 MG/2 ML VIAL ONE (23:27)
[2020-01-09] MEDS ORDERED: KETOROLAC TROMETHAMINE 60 MG/2 ML VIAL IM ONE (23:32)
--- NOTE | 2020-01-09 23:32 | PDOC ---
History of Present Illness - General Chief Complaint: Vaginal Bleeding Stated Complaint: VAGINAL BLEEDING Time Seen by Provider: 01/09/20 23:25 History Source: Patient Exam Limitations: No Limitations - History of Present Illness Initial Comments: 01/09/20 23:26 This is a 24-year-old female who comes in complaining of vaginal bleeding. Patient said she is been bleeding intermittently times the last 2 weeks but more heavily over the last 4 days. 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 Patient said she is taking Tylenol and Motrin for the pain but it they are not helping. Patient denies any other complaints. Patient has 2 pregnancies with 2 children. Patient is sexually active with a single partner. Patient denies history of STDs in the past. Allergies: as per nursing notes Past Medical History: none Social history: Lives with family. No smoking. No alcohol. No illicit drugs. Surgical history: None General: No fevers or chills, no weakness, no weight loss HEENT: No change in vision. No sore throat,. No ear pain CardioVascular: no chest discomfort. No shortness of breath Respiratory:No cough, or wheezing. Gastrointestinal: no nausea, vomiting, diarrhea or constipation, No rectal bleeding Genitourinary: No dysuria, hematuria, or frequency Musculoskeletal: No joint or muscle pain or swelling Neurologic: No headache, vertigo, dizziness or loss of consciousness Psychiatric: nor depression Skin: No rashes or easy bruising Endocrine: no increased thirst or abnormal weight change Allergic: no skin or latex allergy All other systems reviewed and normal Exam: General: Well-nourished well-developed individual, no acute distress HEENT: Throat: Normal, tonsils normal, no erythema or exudate Neck: Supple, no meningeal signs, no lymphadenopathy Eyes::Pupils equal reactive and round, extraocular motion intact Chest: Nontender to palpation Cardiac: S1-S2 normal, regular rate and rhythm, no murmurs rubs or gallops Respiratory: Lungs clear to auscultation bilateral Abdomen: Soft, nondistended, normal bowel sounds, there is mild tenderness over the lower abdomen/pelvic area Pelvic exam: There is mild to moderate amount of vaginal bleeding. There is no foul odor or purulent discharge from the office. There is no clots. Office is closed. There is no cervical motion tenderness. There is some uterine and bilateral adnexal tenderness on palpation Extremities: Warm, dry, no cyanosis, clubbing, or edema Skin: No rashes Neuro: Alert and oriented x3, CN II - XII intact, nonfocal exam with normal strength, normal sensation, normal reflexes, normal gait, Psych: Normal mood and affect Assessment and plan: This is a 24-year-old female who comes in complaining of pelvic pain and vaginal bleeding. Patient does have a mild to moderate amount of vaginal bleeding here in the ED. Patient given Toradol for the pain Vaginal pelvic ultrasound was obtained 01/10/20 01:32 Ultrasound shows a possible cervical mass. Patient was made aware of the ultrasound findings was given a copy of the report and told is very important that she follow-up with her OB in the morning. As the probable/questionable mass of the cervix is what is contributing to her pain and bleeding. Prescription was sent to patient's pharmacy for naproxen and patient was discharged 01/10/20 01:33 Past History - Past Medical History Allergies/Adverse Reactions: Allergies Allergy/AdvReac Type Severity Reaction Status Date / Time No Known Allergies Allergy Verified 01/09/20 23:18 Home Medications: Ambulatory Orders NK [No Known Home Medication] 05/16/19 Asthma: Yes Cancer: No Cardiac Disorders: No COPD: No Diabetes: No GI Disorders: Yes HTN: No Seizures: No Thyroid Disease: No Other medical history: RIGHT OVARIAN CYST/NON HODGKINS LYMPHOMA - Surgical History Cholecystectomy: Yes (2013) - Immunization History Immunization Up to Date: Yes - Psycho Social/Smoking Cessation Hx Smoking Status: No Smoking History: Never smoked Have you smoked in the past 12 months: No Number of Cigarettes Smoked Daily: 0 Cigars Per Day: 0 Information on smoking cessation initiated: No Hx Alcohol Use: Yes (SOCIALLY) Drug/Substance Use Hx: Yes (MARIJUANA 4 TIMES A WEEK) Substance Use Type: None Hx Substance Use Treatment: No *Physical Exam - Vital Signs Last Vital Signs Temp Pulse Resp BP Pulse Ox 99.1 F 104 H 18 136/86 98 01/09/20 23:19 01/09/20 23:19 01/09/20 23:19 01/09/20 23:19 01/09/20 23:19 Discharge - Discharge Information Problems reviewed: Yes Clinical Impression/Diagnosis: Menorrhagia with irregular cycle, Abnormality of cervix Condition: Stable Disposition: HOME - Admission No - Follow up/Referral - Patient Discharge Instructions Additional Instructions: For the pain take naproxen 1 tablet twice a day I sent a prescription to your pharmacy for prescription strength naproxen. Call your OB doctor in the morning and get an appointment to follow-up as soon as possible take a copy of your ultrasound with you when you follow-up. Return to the emergency department immediately with ANY new, persistent or worsening symptoms. Continue any medications as previously prescribed by your physician. You should follow up with your primary doctor as soon as possible regarding today's emergency department visit. . Please make sure your doctor reviews the results of your emergency evaluation. Thank you for coming to the Emergency Department today for your care. It was a pleasure to see you today. Please note that your evaluation is INCOMPLETE until you follow-up with your doctor. - Post Discharge Activity
== END 2020-01-10 02:00 | disposition home or self-care (01) ==
LOC: FER 23:15
PROC: 3E0233Z Introduction of Anti-inflammatory into Muscle, Percutaneous Approach (ICD-10-PCS; principal; 2020-01-09)
DX: N92.0 Excessive and frequent menstruation with regular cycle (principal); N88.8 Other specified noninflammatory disorders of cervix uteri; C85.90 Non-Hodgkin lymphoma, unspecified, unspecified site; J45.909 Unspecified asthma, uncomplicated; K92.9 Disease of digestive system, unspecified
CPT/HCPCS: 76856-TC; 81025; 96372; 99285-25

== ENCOUNTER 2021-10-16 13:48 | Emergency (ER) | payer OTHER ==
[2021-10-16] MEDS ORDERED: LIDOCAINE HCL 2% JELLY 10 ML CARTRIDGE UR ONE (14:02)
[2021-10-16 14:07] VITALS: BMI 39.3
[2021-10-16] MEDS ORDERED: SULFAMETHOXAZOLE/TRIMETHOPRIM 800MG/160MG D.S. TABLET PO ONE (14:13)
[2021-10-16] MEDS ORDERED: SULFAMETHOXAZOLE/TRIMETHOPRIM 800MG/160MG D.S. TABLET ONE (14:24)
[2021-10-16] MEDS ORDERED: KETOROLAC TROMETHAMINE 30 MG/1 ML VIAL ONE (14:27)
[2021-10-16] MEDS ORDERED: KETOROLAC TROMETHAMINE 30 MG/1 ML VIAL IM ONE (14:27)
[2021-10-16 14:34] LABS: HCG,QUALITATIVE URINE Negative
[2021-10-16 14:44] LABS: EPITHELIAL CELLS FEW /hpf
[2021-10-16 17:07] LABS: ALBUMIN 3.2 g/dl (3.4-5.0); BILIRUBIN,TOTAL 0.4 mg/dl (0.2-1); CALCIUM 8.6 mg/dl (8.5-10); CREATININE 1.2 mg/dl (0.55-1.3); TOT PROT 6.8 g/dl (6.4-8.2)
[2021-10-16 19:15] LABS: BASO % 0.2 % (0-2.0); HEMATOCRIT 18.6 % (32.4-45.2); LYMPH % 6.8 % (8-40); MCH 29.5 pg (25.7-33.7); MCHC 33.8 g/dl (32.0-36.0); MEAN CELL VOLUME 87.4 fl (80-96); MEAN PLT VOLUME 6.6 fl (7.5-11.1); MONO % 4.2 % (3.8-10.2); NEUT % 88.8 % (42.8-82.8); PLATELET COUNT 282 10^3/uL (134-434); RBC 2.12 M/mm3 (3.60-5.2); RDW 13.6 % (11.6-15.6); WHITE BLOOD COUNT 9.9 K/mm3 (4.0-10.0)
[2021-10-16 19:18] LABS: HEMOGLOBIN 6.3 GM/dL (10.7-15.3)
[2021-10-16] MEDS ORDERED: CEFTRIAXONE 1,000 MG in DEXTROSE 5%-WATER - 50 ML IVPB ONE (19:34)
[2021-10-16] MEDS ORDERED: cefTRIAXone SODIUM 1 GM VIAL ONE (19:54)
[2021-10-16 22:39] VITALS: BP 117/53; PULSE 103; TEMP 99.4
== END 2021-10-16 23:45 | disposition short-term general hospital (02) ==
LOC: FER 13:48
PROC: 3E033GC Introduction of Other Therapeutic Substance into Peripheral Vein, Percutaneous Approach (ICD-10-PCS; principal; 2021-10-16)
PROC: 3E023GC Introduction of Other Therapeutic Substance into Muscle, Percutaneous Approach (ICD-10-PCS; principal; 2021-10-16)
DX: N13.30 Unspecified hydronephrosis (principal)
CPT/HCPCS: 36415; 74176-TC; 76775-TC; 80053; 81003; 81015; 84703; 85025; 86850; 86900; 86901; 86922; 87077; 87086; 99285-25; C9803; U0003; U0005